=== PATIENT | male | born 2000 | race Hispanic/Latino ===

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

== ENCOUNTER 2021-02-16 03:32 | Emergency (ER) | payer OTHER ==
[~2021-02-16] VITALS: Ht 180.3 cm; Wt 80.3 kg
[~2021-02-16 03:32] MED LIST changes: +DOXY100T27 PO
[2021-02-16 03:33] VITALS: BP 133/76
--- OUTSIDE RECORDS SUMMARY | 2021-02-16 03:41 | CCD ---
Author Author [facility] Organization [facility] Address Unknown Phone Unavailable Care Team Providers Care Waiter/Waitress Cabin Class Name Role Phone [facility] Unavailable Unavailable CHANLIECCO, Shaila LYMAN MD Unavailable Unavailable CHANLIECCO, Shaila LYMAN MD Unavailable Unavailable CHANLIECCO, Shaila LYMAN MD Unavailable Unavailable CHANLIECCO, C BERENICE RODNEY Unavailable Unavailable CHANLIECCO, C BERENICE RODNEY Unavailable Unavailable CHANLIECCO, C BERENICE RODNEY Unavailable Unavailable CHANLIECCO, C BERENICE RODNEY Unavailable Unavailable CHANLIECCO, C BERENICE RODNEY Unavailable Unavailable CHANLIECCO, C BERENICE RODNEY Unavailable Unavailable CHANLIECCO, C BERENICE RODNEY Unavailable Unavailable CHANLIECCO, C BERENICE RODNEY Unavailable Unavailable Re-disclosure Warning The records that you are about to access may contain information from federally-assisted alcohol or drug abuse programs. If such information is present, then the following federally mandated warning applies: This information has been disclosed to you from records protected by federal confidentiality rules (42 CFR part 2). The federal rules prohibit you from making any further disclosure of this information unless further disclosure is expressly permitted by the written consent of the person to whom it pertains or as otherwise permitted by 42 CFR part 2. A general authorization for the release of medical or other information is NOT sufficient for this purpose. The Federal rules restrict any use of the information to criminally investigate or prosecute any alcohol or drug abuse patient.The records that you are about to access may contain highly sensitive health information, the redisclosure of which is protected by Article 27-F of the [facility] Public Health law. If you continue you may have access to information: Regarding HIV / AIDS; Provided by facilities licensed or operated by the [facility] Office of Mental Health; or Provided by the [facility] Office for People With Developmental Disabilities. If such information is present, then the following [facility] mandated warning applies: This information has been disclosed to you from confidential records which are protected by state law. State law prohibits you from making any further disclosure of this information without the specific written consent of the person to whom it pertains, or as otherwise permitted by law. Any unauthorized further disclosure in violation of state law may result in a fine or long term sentence or both. A general authorization for the release of medical or other information is NOT sufficient authorization for further disc losure. Encounters Encounter Providers Location Date Indications Data Source(s ) Emergency Attender: BERENICE CHOWDARY MDConsultant: CLIN [facility] 05/23/2020 07:33:00 AM EDT - 05/23/2020 09:07:00 AM EDT [facility] Patient discharged. Immunizations Vaccine Date Status Description Data Source(s) COVID-19 VACCINE Moderna 09/11/2020 12:00:00 AM EDT completed UiTVSIIS Vaccine Series Complete: YESThis Data wa s Submitted to [facility] Via APJeT. COVID-19 VACCINE Moderna 08/14/2020 12:00:00 AM EDT completed NYSIIS Vaccine Series Complete: NOThis Data was Submitted to [facility] Via APJeT. Medications No Information Insurance Providers Payer name Policy type / Coverage type Policy ID Covered alliance party ID Covered alliance party's relationship to burgos Policy [place] Plan Information [facility] [employer]UTY [id number] SP [id number] [facility] HUMANA - O/P [id number] 18 [id number] Problems, Conditions, and Diagnoses Code Display Name Description Problem Type Effective Dates Data Source(s) [id number] Left testicular pain Left testicular pain Diagnosis 05/23/2020 07:33:00 AM EDT [facility] Surgeries/Procedures No Information Results ID Date Data Source [id number] 05/23/2020 07:33:00 AM EDT [facility] 1 OrderSheet [facility] Emergency Department [address] [place] [address] Phone #: ext- [phone] 05/23/2020 07:16 [id number] Sex: M : 2000 Age: 19yWEIGHT:81.6 kg (S) HEIGHT:71 inches (S) BMI:25.1ALLERGIES: NoneCHIEF COMPLAINT: testicular pain:, LtLAB ORDERSOrder Description Priority Entered Acknowledged InitialedCBC w Diff STAT 07:28 05/23/2020 07:49 Berenice Ga RN ;CMP STAT 07:28 05/23/2020 07:49 Berenice Ga RN ;Urinalysis (Clean STAT 07:05/23/2020 07:58 Estrella Wiggins) Berenice Chowdary R.N. ;DIAGNOSTIC STUDY ORDERSOrder Description Priority Entered Acknowledged InitialedUS Scrotal STAT 07:05/23/2020 07:49 Leisa(Oxygen?(No)) Berenice Chowdary RN ; Reason for Study: Testicle/Scrotum PainMEDICATION/IV/DRIP/FLUID ORDERSOrder Description Priority Entered Acknowledged InitialedGENERAL ORDERSOrder Description Priority Entered Acknowledged Initialed[Electronically signed by Leisa Garcia RN (09:30 05/23/2020)][Electronically signed by Berenice Chowdary (19:20 05/23/2020)][Electronically locked by Leisa Garcia RN (09:05/23/2020)] Name Value Range Interpretation Code Description Data Kady rce(s) Supporting Document(s) ID Date Data Source [id number] 05/23/2020 07:33:00 AM EDT [facility] 1 Medication Reconciliation Report [facility] Emergency Department [address] [place] [address] Phone #: ext- [phone] 05/23/2020 07:16 Patient: CASTRO PATRICIO Sex: M : 2000 Age: 19yWeight: 81.6 kgHeight/Length: 71 in.BMI: 25.1ALLERGIES: NoneThe patient's Home Medications are listed below:NONE.The source(s) of the original Home Medication information:Not obtained.The following Medications were given to the patient in the Emergency Department:None.The following Medications were prescribed to the patient:None. Name Value Range Interpretation Code Description Data [facility](s) Supporting Document(s) ID Date Data Source [id number] 05/23/2020 07:33:00 AM EDT [facility] 1 Medication Administration Record [facility] Emergency Department [address] [place] [address] Phone #: ext- [phone] 05/23/2020 07:16 Patient: CASTRO PATRICIO Sex: M : 2000 Age: 19yWeight: 81.6 kgHeight/Length: 71 inBMI: 25.1ALLERGIES: NoneDate/Time Medication Administered Medication Ordered Name Value Range Interpretation Code Description Data Kady [facility](s) Supporting Document(s) ID Date Data Source [id number] 05/23/2020 07:33:00 AM EDT [facility] 1 General Instructions [facility] Emergency Department [address] [place] [address] Phone #: ext- [phone] 05/23/2020 07:16 Patient: CASTRO PATRICIO Sex: M : 2000 Age: 19y(left testicular pain).INSTRUCTIONSDo not work today, tomorrow.(the blood work as well as the urinalysis and testicular ultrasound were normal. there were no masses orhernia noted. there is also no blood in your urine to suggest referred pain from a kidney stone. use ajock support and follow up with your doctor in am. take tylenol or motirn for pain).Follow-up:Follow up with your healthcare provider today. Reason for referral: evaluation. Summary of care providedto patient via paper. Screening today revealed the patient's blood pressure to be in the hypertensive stage2 range. The patient should follow up with a primary care provider for blood pressure management.Do not work today, tomorrow.(Electronically signed by Berenice Chowdary 05/23/2020 19:20) Name Value Range Interpretation Code Description Data Kady rce(s) Supporting Document(s) ID Date Data Source [id number] 05/23/2020 07:33:00 AM EDT [facility] 1 Clinical Report - Nurses [facility] Emergency Department [address] [place] [address] Phone #: ext- [phone] 05/23/2020 07:16 Patient: CASTRO PATRICIO Sex: M : 2000 Age: 19yTRIAGEArrived by private vehicle. Historian: patient. Accompanied by friend. ( left testicular pain).Acuity: LEVEL 4.Chief Complaint: (left testicular pain).Alert.Onset. (3 or 4 days ago). The patient has had testicular pain.Treatment CHRISTMAS BELL RINGER:None.SEPSIS SCREEN: SIRS SCREEN NEGATIVE. SEPSIS SCREEN NEGATIVE. No suspected or confirmedsigns of infection present. --07:26 05/23/20 Georgia Wiggins R.N.07:22 05/23/20. BP: 145/82. MAP: 103. HR: 73. RR: 18. O2 saturation: 100%. Temp: 98.1 F. Pain levelnow: 4/10. --07:26 05/23/20 Georgia Wiggins R.N.Weight: 81.6 kg stated. Height/Length: 71 inches Per Patient. BMI: 25.1. --07:21 05/23/20 Georgia Wiggins R.N.MedicationsNone. --07:23 05/23/20 Georgia Wiggins R.N.AllergiesNone. --07:23 05/23/20 Georgia Wiggins R.N.PROBLEMS:no known problems.ADDITIONAL SURGERIES:no known surgeries.HistoryPAST MEDICAL HX: Immunizations: up-to-date.SOCIAL HX: Never smoker. No alcohol use or drug use. The patient was offered HIV testing butdeclined and hepatitis C testing but declined. The patient has not traveled outside the [place]Infectious disease exposure: No infectious disease exposure. Patient is not a known carrier of tuberculosis,hepatitis, HIV, MRSA or VRE. Patient is not a known carrier of CRE.SELF HARM ASSESSMENT: Self harm assessment was performed. The patient answered "no" to the 2 Clinical Report - Nurses [facility] Emergency Department [address] [place] [address] Phone #: ext- [phone] 05/23/2020 07:16 Patient: CASTRO PATRICIO Sex: Fariba : 2000 Age: 19y question(s) "Have you recently felt down, depressed, or hopeless?", "Do you have thoughts of harming or killing yourself?", "Do you have a plan for harming or killing yourself?", "Have you recently had thoughts about harming or killing others?", "Do you have any dangerous items in your possession?", "Have you noticed less interest or pleasure in doing things?", "Are you here because you tried to hurt yourself?" and "Have you ever tried to hurt yourself before today?". ABUSE ASSESSMENT: Abuse assessment. Abuse denied. No suspicion of abuse. No report of abuse. NUTRITIONAL RISK ASSESSMENT: The nutritional risk assessment revealed no deficiencies. FUNCTIONAL ASSESSMENT: Functional assessment: no impairments noted. LEARNING NEEDS ASSESSMENT: The learning needs assessment revealed no barriers. FALL RISK ASSESSMENT: Fall risk assessment completed. No risk factors identified. SKIN INTEGRITY ASSESSMENT: Skin integrity risk assessment completed. No skin integrity risk identified. --:05/23/20 Georgia Wiggins R.N. Interventions Identification band on patient. To treatment room. --:05/23/20 Georgia Wiggins R.N.PHYSICAL ASSESSMENTGENERAL / NEURO / PSYCH: Alert. Oriented X 4.HEENT: Mucous membranes are pink.RESPIRATORY: Respirations not labored. Breath sounds within normal limits.CVS: Normal heart rate and rhythm. Capillary refill less than 2 seconds.GI / : Abdomen soft and nontender. Bowel sounds within normal limits. No pain with urination,frequency of urination, urgency of urination or scrotal swelling. ( left testicular pain).SKIN: Skin is warm and dry. --:05/23/20 Georgia Wiggins R.N.NURSING PROGRESS NOTESPatient gowned. Reassurance given. Two patient identifiers checked. Call light placed in reach. Siderails up x 2. Bed placed in lowest position. Brakes of bed on. Patient ready for evaluation. ( unable tovoid at present for sample pt aware to let nurse know when he can void). --05/23/20 Georgia Wiggins R.N. Patient ID band checked for patient name and birthdate: patient confirmed. Instructions provided to collect clean catch urine and patient verbalized understanding. Clean catch urine collected; sample sent to lab for urinalysis. Specimen labeled in the presence of the patient. Patient transported to sonogram by wheelchair with tech. --07:59 05/23/20 Georgia Wiggins R.N. 08:10 05/23/20. Patient returned from sonogram by wheelchair with tech. --08:15 05/23/20 Georgia Wiggins R.N. 3 Clinical Report - Nurses [facility] Emergency Department [address] [place] [address] Phone #: ext- [phone] 05/23/2020 07:16 Patient: CASTRO PATRICIO Sex: M : 2000 Age: 19yDISPOSITION / DISCHARGE 09:01 05/23/20. BP: 139/73. HR: 75. RR: 18. O2 saturation: 98%. Temp: 97.4 F. Pain level now 05/15. --09:01 05/23/20 Replaced by [facility], [place] [id number] 09:07 05/23/20. Condition at departure: improved and stable. No learning barriers present. Discharge instructions provided and reviewed with the patient. Patient verbalized understanding. The patient was discharged home. He left ambulatory and via private vehicle. Patient driving. - -09:15 05/23/20 Leisa Garcia RN.Locked/Released at 05/23/2020 09:30 by Leisa Garcia RN Name Value Range Interpretation Code Description Data Kady rce(s) Supporting Document(s) ID Date Data Source [id number] 05/23/2020 07:33:00 AM EDT [facility] 1 Clinical Report - Physicians/Mid Levels [facility] Emergency Department [address] [place] [address] Phone #: ext [phone] 05/23/2020 07:16 Patient: CASTRO PATRICIO Sex: M : 2000 Age: 19y Time Seen: 07:25 05/23/2020; initial patient contact, initial documentation. Arrived- By private vehicle. Disposition decision: 08:58 05/23/2020.HISTORY OF PRESENT ILLNESS Chief Complaint: LEFT TESTICULAR PAIN. This started 4 days ago and is still present (worse last night but better this morning). The problem is described as moderate. It was gradual in onset and has been intermittent (4 hours hours days). No penile discharge, discomfort with urination, urinary frequency, genital lesion or flank pain. No Hayes catheter problem, inguinal swelling or problem with the foreskin. He has had testicular pain. Able to void. Not voiding only small amounts. The patient has had no unprotected intercourse or not had an exposure to a sexually transmitted disease. Sexual history is noncontributory.REVIEW OF SYSTEMSNo fever, chills, flank pain, hematuria or abdominal pain. No vomiting, diarrhea, black stools, headache orsore throat. No blurred vision, chest pain, difficulty breathing, cough or joint pain. No skin rash or backpain. All other systems reviewed and are negative.PAST HISTORYNegative. Problems: no known problems. Additional Surgeries: no known surgeries. Medications: None. Allergies: None.SOCIAL HISTORYNever smoker. No alcohol use or drug use.ADDITIONAL NOTESThe nursing notes have been reviewed.PHYSICAL EXAMVital Signs: 05/23/2020 07:22 BP: 145/82. MAP: 103. HR: 73. RR: 18. O2 saturation: 100%. Temp: 98.1F. Pain level now: 410. Have been reviewed. Oxygen saturation normal.Appearance: Alert. Oriented X3. No acute distress. 2 Clinical Report - Physicians/Mid Levels [facility] Emergency Department [address] [place] [address] Phone #: ext- [phone] 05/23/2020 07:16 Patient: CASTRO PATRICIO Sex: M : 2000 Age: 19y ENT: Normal external inspection. Pharynx normal. Neck: Neck supple. CVS: Heart sounds normal. Respiratory: No respiratory distress. Painless inspiration. Breath sounds normal. Abdomen: Soft and nontender. No organomegaly. No mass. Femoral pulses equal. : Normal genitalia. Scrotal swelling with tenderness (there is mild tenderness on palpation on the left testicle). No urethral discharge, genital lesion, phimosis, herpes-like lesions or scrotal mass. No inguinal lymphadenopathy or Hayes catheter. Skin: Skin warm and dry. Normal skin color. No rash. Normal skin turgor. Extremities: Extremities exhibit normal ROM. No lower extremity edema. Neuro: Oriented X 3. No motor deficit. No sensory deficit. Reflexes normal.LABS, X-RAYS, AND EKGScrotal Sonogram: Dakota martinez Michael - 05/23/2020 8:21:02 AM No acute disease no signs of torsion or any testicular lesions. Epididymi appear normal. The study was interpreted by the radiologist. Laboratory Tests: CBC w Diff: (AUTUMN: 05/23/2020 07:40) ( MsgRcvd 05/23/2020 08:03) Final results Test Result Flag Units (Reference) CBC W/AUTOMATED DIFF COMPLETE BLOOD COUNT WBC 5.6 10/uL (4.2 - 11.0) RBC 5.62 10/uL (4.50 - 6.30) HEMOGLOBIN 15.8 g/dL (14.0 - 16.0) HEMATOCRIT 46.5 % (41.0 - 51.0) MCV 82.7 fL (80.0 - 94.0) MCH 28.1 pg (27.0 - 34.0) MCHC 34.0 g/dL (31.0 - 36.0) RDW 13.1 % (11.5 - 14.8) PLATELETS 213 10/uL (150 - 450) MPV 9.5 fL (7.4 - 10.4) NEUT 46.6 % (37.0 - 80.0) LYMPH 34.8 % (25.0 - 40.0) MONO 15.3 H % (3.0 - 8.0) EOS 2.7 % (0.0 - 7.0) BASO 0.4 % (0.0 - 2.0) %IG 0.2 H % (0.0 - 0.0) %NRBC 0.0 % (0.0 - 0.0) #NEUT 2.60 10/uL (2.00 - 6.90) #LYMPH 1.94 10/uL (0.60 - 3.40) #MONO 0.85 10/uL (0.00 - 0.90) #EOS 0.15 10/uL (0.00 - 0.70) #BASO 0.02 10/uL (0.00 - 0.20) #IG 0.01 10/uL (0.00 - 0.10) #NRBC 0.00 10/uL (0.00 - 0.00) MANUAL DIFF NOT INDICATED RBC MORPH NOT INDICATED CMP: (AUTUMN: 05/23/2020 07:40) ( MsgRcvd 05/23/2020 08:21) Final results Test Result Flag Units (Reference) COMPREHENSIVE METABOLIC PANEL 3 Clinical Report - Physicians/Mid Levels [facility] Emergency Department [address] [place] [address] Phone #: ext- [phone] 05/23/2020 07:16 Patient: CASTRO PATRICIO Sex: M : 2000 Age: 19y COMPREHENSIVE METABOLIC PANEL SODIUM 138 mEq/L (134 - 153) POTASSIUM 4.0 mEq/L (3.6 - 5.0) CHLORIDE 101 mEq/L (98 - 107) CO2 27 MEQ/L (22 - 30) GLUCOSE 104 H MG/DL (70 - 99) BUN 15 MG/DL (7 - 21) CREATININE 0.8 MG/DL (0.7 - 1.5) BUN/CREAT 19 (8 - 27) TOTAL PROTEIN 7.2 G/DL (6.3 - 8.2) ALBUMIN 4.4 G/DL (3.9 - 5.0) GLOBULIN 2.8 GM/DL (2.4 - 3.2) A/G RATIO 1.6 (0.8 - 2.0) CALCIUM 9.7 MG/DL (8.4 - 10.2) TOTAL BILI <0.7 MG/DL (0.2 - 1.3) ALKALINE PHOS 205 H U/L (38 - 126) SGOT/AST 28 U/L (5 - 40) SGPT/ALT 37 U/L (7 - 56) ANION GAP 10.0 mmol/L (8.0 - 16.0) AGE 19 yrs NON-AA GFR >60 mL/min AFR AMER GFR >60 mL/min Male GFR Interprentation 20-49 yrs >60 mL/min Normal 50-59 yrs >56 mL/min Normal 60-69 yrs >49 mL/min Normal 70-79yrs >42 mL/min Normal 80 and above >35 mL/min Normal Female GFR Interpretation 20-39 yrs >60 mL/min Normal 40-49 yrs >58 mL/min Normal 50-59 yrs >51 mL/min Normal 60-69 yrs >45 mL/min Normal 70-79 yrs >39 mL/min Normal 80 and above >32 mL/min Normal Urinalysis: (AUTUMN: 05/23/2020 07:40) ( MsgRcvd 05/23/2020 08:20) Final results Test Result Flag Units (Reference) URINALYSIS URINALYSIS SOURCE R COLOR yellow (NORMAL: Yello CLARITY clear (NORMAL: Clear SPEC GRAVITY 1.020 (1.001 - 1.030 pH 6 (5 - 9) GLUCOSE NORM (NORMAL: Negat BILIRUBIN NEG (NORMAL: Negat KETONE NEG (NORMAL: Negat PROTEIN NEG (NORMAL: Negat NITRITE NEG (NORMAL: Negat BLOOD NEG (NORMAL: Negat LEUK EST NEG (NORMAL: Negat UROBILINOGEN NOR (less than 1.0 MICROSCOPIC Not Indicate US Scrotal: (AUTUMN: 05/23/2020 07:33) ( MsgRcvd 05/23/2020 08:15) In Progress US SCROTAL Reason(s): Testicle/Scrotum Pain TRANSPORTATION: IV? O2? Oxygen?(No) Room: ED. 4 Clinical Report - Physicians/Mid Levels [facility] Emergency Department [address] [place] [address] Phone #: ext- [phone] 05/23/2020 07:16 Patient: CASTRO PATRICIO Sex: M : 2000 Age: 19yPROGRESS AND PROCEDURESCourse of Care: 08:52 05/23/20. urinalysis as well as blood work were unremarkable. US of the testiclewas negative. there was no swelling or mass noted on physical exam as well. Patient counseled in person regarding the patient's stable condition, test results, normal exam, normal evaluation and need for follow-up. Patient agrees with plan of care. Disposition: Discharged home in stable condition (08:59). Condition: good and stable. Discharge decision based on the following: patient's condition is stable; patient's exam is stable; no abnormal test results; stable condition on repeat evaluation; social support is adequate; transportation is available; follow-up is available; clinical impression is consistent with outpatient treatment.CLINICAL IMPRESSION (left testicular pain).INSTRUCTIONS Do not work today, tomorrow. (the blood work as well as the urinalysis and testicular ultrasound were normal. there were no masses or hernia noted. there is also no blood in your urine to suggest referred pain from a kidney stone. use a jock support and follow up with your doctor in am. take tylenol or motirn for pain). Follow-up: Follow up with your healthcare provider today. Reason for referral: evaluation. Summary of care provided to patient via paper. Screening today revealed the patient's blood pressure to be in the hypertensive stage 2 range. The patient should follow up with a primary care provider for blood pressure management.(Electronically signed by Berenice Chowdary 05/23/2020 19:20) Name Value Range Interpretation Code Description Data Kady rce(s) Supporting Document(s) ID Date Data Source [id number] 05/23/2020 10:24:00 AM EDT [facility] [address] [place] [address] PHONE: [phone] FAX: [phone] Name .................. : SINTIA Link Acct Number.................. : [id number] ROOM. ................. : -04 MR Number ................... : [id number] Stay type ............. : E/R Discharge Date......... ... : Admit Date ......... : 05/23/20 Admit Phys .................... : [facility] Date of ....... : 2000 Family Phys ................... : UNKNOWN Phone .................. : [phone] Age ................................ : 19 Film# .................. .:[id number] Sex ................................. : M Unsigned transcriptions are preliminary reports and do not represent a medical or legal document SCROTAL [id number] COMPLETE:05/23/20 08:15 [facility] [id number] Reason(s): Jessenia ticle/Scrotum Pain BILATERAL TESTICULAR ULTRASOUND WITH DUPLEX AND COLOR FLOW DOPPLER ANALYSIS, 05/23/20: FINDINGS: Right testicle measures 4.2 x 2.0 x 3.0 cm. Left testicle measures 4.0 x 1.8 x 2.5 cm. There are no signs of any intratesticular lesions identified. There are no signs of any definite abnormalities to flow to either testicle. No signs of any hydroceles. No evidence for any epididymitis identified. IMPRESSION: Unremarkable bilateral scrotal ultrasound with Duplex and color flow Doppler analysis. Electronically Reviewed and Signed By LENI COBURN MD , 05/23/20 10:24, M Transcribe Initials: SSR, Transcribe Date: 05/23/20 09:06, Dictation Date: Copy for: EMERGENCY DEPT via modem Copy for: 710 MED REC DISCHARGED Page 1 of 1 Name Value Range Interpretation Code Description Data Kady rce(s) Supporting Document(s) ID Date Data Source [id number] 05/23/2020 08:21:00 AM EDT [facility] Name Value Range Interpretation Code Description Data Kady rce(s) Supporting Document(s) COMPREHENSIVE METABOLIC PANEL [facility] COMPREHENSIVE METABOLIC PANEL Sodium [Moles/volume] in Serum or Plasma 138 mEq/L 134 - 153 [facility] Potassium [Moles/volume] in Serum or Plasma 4.0 mEq/L 3.6 - 5.0 [facility] Chloride [Moles/volume] in Serum or Plasma 101 mEq/L 98 - 107 [facility] Carbon dioxide, total [Moles/volume] in Serum or Plasma 27 MEQ/L 22 - 30 [facility] Glucose [Mass/volume] in Serum or Plasma 104 MG/DL 70 - 99 H [facility] BUN 15 MG/DL 7 - 21 [facility] al Creatinine [Mass/volume] in Serum or Plasma 0.8 MG/DL 0.7 - 1.5 [facility] BUN/CREAT 19 8 - 27 [facility] Protein [Mass/volume] in Serum or Plasma 7.2 G/DL 6.3 - 8.2 [facility] Albumin [Mass/volume] in Serum or Plasma 4.4 G/DL 3.9 - 5.0 [facility] Globulin [Mass/volume] in Serum by calculation 2.8 GM/DL 2.4 - 3.2 [facility] A/G RATIO 1.6 0.8 - 2.0 [facility] Calcium [Mass/volume] in Serum or Plasma 9.7 MG/DL 8.4 - 10.2 [facility] Bilirubin.total [Mass/volume] in Serum or Plasma <0.7 MG/DL 0.2 - 1.3 [facility] Alkaline phosphatase [Enzymatic activity/volume] in Serum or Plasma 205 U/L 38 - 126 H [facility] Aspartate aminotransferase [Enzymatic activity/volume] in Serum or Plasma 28 U/L 5 - 40 [facility] Alanine aminotransferase [Enzymatic activity/volume] in Seru m or Plasma 37 U/L 7 - 56 [facility] Anion gap 3 in Serum or Plasma 10.0 mmol/L 8.0 - 16.0 [facility] 19 [facility] >60 [facility]/min [facility] AFR AMER GFR >60 mL/min [facility] Ho spital Male GFR In terprentation 20-49 yrs >60 mL/min Normal 50-59 yrs >56 mL/min Normal 60-69 yrs >49 mL/min Normal 70-79yrs >42 mL/min Normal 80 and above >35 mL/min Normal Female GFR Interpretation 20-39 yrs >60 mL/min Normal 40-49 yrs >58 mL/min Normal 50-59 yrs >51 mL/min Normal 60-69 yrs >45 mL/min Normal 70-79 yrs >39 mL/min Normal 80 and above >32 mL/min Normal ID Date Data Source [id number] 05/23/2020 08:16:00 AM EDT [facility] Name Value Range Interpretation Code Description Data Kady rce(s) Supporting Document(s) URINALYSIS [facility] URINALYSIS SOURCE R [facility] COLOR yellow NORMAL: Yellow [facility] CLARITY clear NORMAL: Clear [facility] Specific gravity of Urine by Test strip 1.020 1.001 - 1.030 [facility] pH 6 5 - 9 [facility] al Glucose [Mass/volume] in Urine by Test strip NORM NORMAL: Negat [facility] Bilirubin.total [Presence] in Urine by Test strip NEG NORMAL: Negative [facility] Ketones [Presence] in Urine by Test strip NEG NORMAL: Negative [facility] Protein [Mass/volume] in Urine by Test strip NEG NORMAL: Negat [facility] Nitrite [Presence] in Urine by Test strip NEG NORMAL: Negative [facility] BLOOD NEG NORMAL: Negative [facility] Leukocyte esterase [Presence] in Urine by Test strip NEG HAROON L: Negative [facility] Urobilinogen [Mass/volume] in Urine by Test strip NOR less latasha n 1.0 mg/dL [facility] MICROSCOPIC Not Indicate [facility] ospital ID Date Data Source [id number] 05/23/2020 08:01:00 AM EDT [facility] Name Value Range Interpretation Code Description Data Kady rce(s) Supporting Document(s) CBC W/AUTOMATED DIFF [facility] COMPLETE BLOOD COUNT Leukocytes [#/volume] in Blood by Automated count 5.6 10^3/uL 4.2 - 1 1.0 [facility] Erythrocytes [#/volume] in Blood by Automated count 5.62 10^6/uL 4. 50 - 6.30 [facility] Hemoglobin [Mass/volume] in Blood 15.8 g/dL 14.0 - 16.0 [facility] Hematocrit [Volume Fraction] of Blood by Automated count 46.5 % 4 1.0 - 51.0 [facility] Erythrocyte mean corpuscular volume [Entitic volume] by Auto mated count 82.7 fL 80.0 - 94.0 [facility] Erythrocyte mean corpuscular hemoglobin [Entitic mass] by Automated count 28.1 pg 27.0 - 34.0 [facility] Erythrocyte mean corpuscular hemoglobin concentration [Mass/volume] by Automated count 34.0 g/dL 31.0 - 36.0 [facility] Erythrocyte distribution width [Ratio] by Automated count 13.1 % 11.5 - 14.8 [facility] Platelets [#/volume] in Blood by Automated count 213 10^3/uL 150 - 45 0 [facility] Platelet mean volume [Entitic volume] in Blood by Automated count 9.5 fL 7.4 - 10.4 [facility] Neutrophils/100 leukocytes in Blood by Automated count 46.6 % 37. 0 - 80.0 [facility] Lymphocytes/100 leukocytes in Blood by Manual count 34.8 % 25.0 - 40.0 [facility] Monocytes/100 leukocytes in Blood by Automated count 15.3 % 3.0 - 8.0 H [facility] Eosinophils/100 leukocytes in Blood by Automated count 2.7 % 0.0 - 7.0 [facility] Basophils/100 leukocytes in Blood by Automated count 0.4 % 0.0 - 2.0 [facility] %IG 0.2 % 0.0 - 0.0 [facility] 0.0 % 0.0 - 0.0 [facility] al Neutrophils [#/volume] in Blood by Automated count 2.60 10^3/uL 2.00 - 6.90 [facility] Lymphocytes [#/volume] in Blood by Automated count 1.94 10^3/uL 0.60 - 3.40 [facility] Monocytes [#/volume] in Blood by Automated count 0.85 10^3/uL 0.00 - 0.90 [facility] Eosinophils [#/volume] in Blood by Automated count 0.15 10^3/uL 0.00 - 0.70 [facility] Basophils [#/volume] in Blood by Automated count 0.02 10^3/uL 0.00 - 0.20 [facility] #IG 0.01 10^3/uL 0.00 - 0.10 [facility] #NRBC 0.00 10^3/uL 0.00 - 0.00 [facility] MANUAL DIFF NOT INDICATED [facility] RBC MORPH NOT INDICATED [facility] spital Procedure Social History No Information
--- OUTSIDE RECORDS SUMMARY | 2021-02-16 07:01 | CCD ---
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 Public Health law. If you continue you may have access to information: Regarding HIV / AIDS; Provided by facilities licensed or operated by the [facility] Office of Mental Health; or Provided by the [facility] Office for People With Developmental Disabilities. If such information is present, then the following [facility] mandated warning applies: This information has [...] law may result in a fine or shelter sentence or both. A general authorization for the release of medical or other information is NOT sufficient authorization for further disc losure. Encounters Encounter Providers Location Date Indications Data Source(s ) Emergency Attender: BERENICE CHOWDARY MDConsultant: [facility] 05/23/2020 07:33:00 AM EDT - 05/23/2020 09:07:00 AM EDT [facility] Patient discharged. Immunizations Vaccine Date Status Description Data Source(s) COVID-19 VACCINE Moderna 09/11/2020 12:00:00 AM EDT completed Hive7SIIS Vaccine Series Complete: YESThis Data wa s Submitted to [facility] Via [employer]. COVID-19 VACCINE Moderna 08/14/2020 12:00:00 AM EDT completed NYSIIS Vaccine Series Complete: NOThis Data was Submitted to [facility] Via [employer]. Medications No Information Insurance Providers Payer name Policy type / Coverage type Policy ID Covered republican ID Covered republican's relationship to burgos Policy [place] Plan Information [facility] ACTIVE DUTY [id number] SP [id number] [facility] HUMANA - O/P [id number] 18 [id number] Problems, Conditions, and Diagnoses Code Display Name Description Problem Type Effective Dates Data Source(s) [id number] Left testicular pain Left testicular pain Diagnosis 05/23/2020 07:33:00 AM EDT [facility] Surgeries/Procedures No Information Results ID Date Data Source [id number] 05/23/2020 07:33:00 AM EDT [facility] 1 OrderSheet [facility] Emergency Department [address] [place] [address] Phone #: ext- [phone] 05/23/2020 07:16 [id number] Sex: [facility] : 2000 Age: 19yWEIGHT:81.6 kg [...] rce(s) Supporting Document(s) ID Date Data Source [id number] 05/23/2020 07:33:00 AM EDT [facility] 1 Medication Reconciliation Report [facility] Emergency Department [address] [place] [address] Phone #: ext- [phone] 05/23/2020 07:16 Patient: CASTRO PATRICIO Sex: M : 2000 Age: 19yWeight: 81.6 kgHeight/Length: 71 in.BMI: 25.1ALLERGIES: NoneThe patient's Home Medications are listed below:NONE.The source(s) of the original Home Medication information:Not obtained.The following Medications were given to the patient in the Emergency Department:None.The following Medications were prescribed to the patient:None. Name Value Range Interpretation Code Description Data [facility](s) Supporting Document(s) ID Date Data Source [id number] 05/23/2020 07:33:00 AM EDT [facility] 1 Medication Administration Record [facility] Emergency Department [address] [place] [address] Phone #: ext- [phone] 05/23/2020 07:16 Patient: CASTRO PATRICIO Sex: M : 2000 Age: 19yWeight: 81.6 kgHeight/Length: 71 inBMI: 25.1ALLERGIES: NoneDate/Time Medication Administered Medication Ordered Name Value Range Interpretation Code Description Data [facility](s) Supporting Document(s) ID Date Data Source [id number] 05/23/2020 07:33:00 AM EDT [facility] 1 General Instructions [facility] Emergency Department [address] [place] [address] Phone #: ext- [phone] 05/23/2020 07:16 Patient: [...] rce(s) Supporting Document(s) ID Date Data Source [id number] 05/23/2020 07:33:00 AM EDT [facility] 1 Clinical Report - Nurses [facility] Emergency Department [address] [place] [address] Phone #: ext- [phone] 05/23/2020 07:16 Patient: CASTRO PATRICIO Sex: M : 2000 Age: 19yTRIAGEArrived by private vehicle. Historian: patient. Accompanied by friend. ( left testicular pain).Acuity: LEVEL 4.Chief Complaint: (left testicular pain).Alert.Onset. (3 or 4 days ago). The patient has had testicular pain.Treatment LAY OUT CARPENTER:None.SEPSIS SCREEN: SIRS SCREEN NEGATIVE. SEPSIS SCREEN NEGATIVE. [...] to the 2 Clinical Report - Nurses [facility] Emergency Department [address] [place] [address] Phone #: ext- [phone] 05/23/2020 07:16 Patient: [...] Wiggins R.N. 3 Clinical Report - Nurses [facility] Emergency Department [address] [place] [address] Phone #: ext- [phone] 05/23/2020 07:16 Patient: CASTRO PATRICIO Sex: M : 2000 Age: 19yDISPOSITION / DISCHARGE 09:01 05/23/20. BP: 139/73. HR: 75. RR: 18. O2 saturation: 98%. Temp: 97.4 F. Pain level now 05/15. --09:01 05/23/20 [facility], [place] [id number] 09:07 05/23/20. Condition at departure: improved and [...] rce(s) Supporting Document(s) ID Date Data Source [id number] 05/23/2020 07:33:00 AM EDT [facility] 1 Clinical Report - Physicians/Mid Levels [facility] Emergency Department [address] [place] [address] Phone #: ext [phone] 05/23/2020 07:16 Patient: CASTRO PATRICIO Sex: M [...] distress. 2 Clinical Report - Physicians/Mid Levels [facility] Emergency Department [address] [place] [address] Phone #: ext- [phone] 05/23/2020 07:16 Patient: [...] PANEL 3 Clinical Report - Physicians/Mid Levels [facility] Emergency Department [address] [place] [address] Phone #: ext- [phone] 05/23/2020 07:16 Patient: [...] ED. 4 Clinical Report - Physicians/Mid Levels [facility] Emergency Department [address] [place] [address] Phone #: ext- [phone] 05/23/2020 07:16 Patient: [...] rce(s) Supporting Document(s) ID Date Data Source [id number] 05/23/2020 10:24:00 AM EDT [facility] [address] [place] [address] PHONE: [phone] FAX: [phone] Name .................. : SINTIA Link Acct Number.................. : [id number] ROOM. ................. : -04 MR Number ................... : [id number] Stay type ............. : E/R Discharge Date......... ... : Admit Date ......... : 05/23/20 Admit Phys .................... : [facility] Date of ....... : 2000 Family Phys ................... : UNKNOWN Phone .................. : [phone] Age ................................ : 19 Film# .................. .:[id number] Sex ................................. : M Unsigned transcriptions are preliminary reports and do not represent a medical or legal document SCROTAL [id number] COMPLETE:05/23/20 08:15 [facility] [id number] Reason(s): Jessenia ticle/Scrotum Pain BILATERAL [...] rce(s) Supporting Document(s) ID Date Data Source [id number] 05/23/2020 08:21:00 AM EDT [facility] Name Value Range Interpretation Code Description Data Kady rce(s) Supporting Document(s) COMPREHENSIVE METABOLIC PANEL [facility] COMPREHENSIVE METABOLIC PANEL Sodium [Moles/volume] in Serum or Plasma 138 mEq/L 134 - 153 [facility] Potassium [Moles/volume] in Serum or Plasma 4.0 mEq/L 3.6 - 5.0 [facility] Chloride [Moles/volume] in Serum or Plasma 101 mEq/L 98 - 107 [facility] Carbon dioxide, total [Moles/volume] in Serum or Plasma 27 MEQ/L 22 - 30 [facility] Glucose [Mass/volume] in Serum or Plasma 104 MG/DL 70 - 99 H [facility] BUN 15 MG/DL 7 - 21 [facility] al Creatinine [Mass/volume] in Serum or Plasma 0.8 MG/DL 0.7 - 1.5 [facility] BUN/CREAT 19 8 - 27 [facility] Protein [Mass/volume] in Serum or Plasma 7.2 G/DL 6.3 - 8.2 [facility] Albumin [Mass/volume] in Serum or Plasma 4.4 G/DL 3.9 - 5.0 [facility] Globulin [Mass/volume] in Serum by calculation 2.8 GM/DL 2.4 - 3.2 [facility] A/G RATIO 1.6 0.8 - 2.0 [facility] Calcium [Mass/volume] in Serum or Plasma 9.7 MG/DL 8.4 - 10.2 [facility] Bilirubin.total [Mass/volume] in Serum or Plasma <0.7 MG/DL 0.2 - 1.3 [facility] Alkaline phosphatase [Enzymatic activity/volume] in Serum or Plasma 205 U/L 38 - 126 H [facility] Aspartate aminotransferase [Enzymatic activity/volume] in Serum or Plasma 28 U/L 5 - 40 [facility] Alanine aminotransferase [Enzymatic activity/volume] in Seru m or Plasma 37 U/L 7 - 56 [facility] Anion gap 3 in Serum or Plasma 10.0 mmol/L 8.0 - 16.0 [facility]GE 19 [facility]rs [facility] NON-AA GFR >60 mL/min [facility] ital AFR AMER GFR >60 mL/min [facility] spital Male GFR In terprentation 20-49 [...] >32 mL/min Normal ID Date Data Source [id number] 05/23/2020 08:16:00 AM EDT [facility] Name Value Range Interpretation Code Description Data Kady rce(s) Supporting Document(s) URINALYSIS [facility] URINALYSIS SOURCE R [facility] COLOR yellow NORMAL: Yellow [facility] CLARITY clear NORMAL: Clear [facility] spital Specific gravity of Urine by Test strip 1.020 1.001 - 1.030 [facility] pH 6 5 - 9 [facility] al Glucose [Mass/volume] in Urine by Test strip NORM NORMAL: Negat [facility] Bilirubin.total [Presence] in Urine by Test strip NEG NORMAL: Negative [facility] Ketones [Presence] in Urine by Test strip NEG NORMAL: Negative [facility] Protein [Mass/volume] in Urine by Test strip NEG NORMAL: Negat [facility] Nitrite [Presence] in Urine by Test strip NEG NORMAL: Negative [facility] BLOOD NEG NORMAL: Negative [facility] Leukocyte esterase [Presence] in Urine by Test strip NEG HAROON L: Negative [facility] Urobilinogen [Mass/volume] in Urine by Test strip NOR less latasha n 1.0 mg/dL [facility] MICROSCOPIC Not Indicate [facility] ospital ID Date Data Source [id number] 05/23/2020 08:01:00 AM EDT [facility] Name Value Range Interpretation Code Description Data Kady rce(s) Supporting Document(s) CBC W/AUTOMATED DIFF [facility] COMPLETE BLOOD COUNT Leukocytes [#/volume] in Blood by Automated count 5.6 10^3/uL 4.2 - 1 1.0 [facility] Erythrocytes [#/volume] in Blood by Automated count 5.62 10^6/uL 4. 50 - 6.30 [facility] Hemoglobin [Mass/volume] in Blood 15.8 g/dL 14.0 - 16.0 [facility] Hematocrit [Volume Fraction] of Blood by Automated count 46.5 % 4 1.0 - 51.0 [facility] Erythrocyte mean corpuscular volume [Entitic volume] by Auto mated count 82.7 fL 80.0 - 94.0 [facility] Erythrocyte mean corpuscular hemoglobin [Entitic mass] by Automated count 28.1 pg 27.0 - 34.0 [facility] Erythrocyte mean corpuscular hemoglobin concentration [Mass/volume] by Automated count 34.0 g/dL 31.0 - 36.0 [facility] Erythrocyte distribution width [Ratio] by Automated count 13.1 % 11.5 - 14.8 [facility] Platelets [#/volume] in Blood by Automated count 213 10^3/uL 150 - 45 0 [facility] Platelet mean volume [Entitic volume] in Blood by Automated count 9.5 fL 7.4 - 10.4 [facility] Neutrophils/100 leukocytes in Blood by Automated count 46.6 % 37. 0 - 80.0 [facility] Lymphocytes/100 leukocytes in Blood by Manual count 34.8 % 25.0 - 40.0 [facility] Monocytes/100 leukocytes in Blood by Automated count 15.3 % 3.0 - 8.0 H [facility] Eosinophils/100 leukocytes in Blood by Automated count 2.7 % 0.0 - 7.0 [facility] Basophils/100 leukocytes in Blood by Automated count 0.4 % 0.0 - 2.0 [facility] %IG 0.2 % 0.0 - 0.0 [facility] %NRBC 0.0 % 0.0 - 0.0 [facility] al Neutrophils [#/volume] in Blood by Automated count 2.60 10^3/uL 2.00 - 6.90 [facility] Lymphocytes [#/volume] in Blood by Automated count 1.94 10^3/uL 0.60 - 3.40 [facility] Monocytes [#/volume] in Blood by Automated count 0.85 10^3/uL 0.00 - 0.90 [facility] Eosinophils [#/volume] in Blood by Automated count 0.15 10^3/uL 0.00 - 0.70 [facility] Basophils [#/volume] in Blood by Automated count 0.02 10^3/uL 0.00 - 0.20 [facility] #IG 0.01 10^3/uL 0.00 - 0.10 [facility] H [facility]spital #NRBC 0.00 10^3/uL 0.00 - 0.00 [facility] MANUAL DIFF NOT INDICATED [facility] RBC MORPH NOT INDICATED [facility] Ho spital Procedure Social History No Information
== END 2021-02-16 07:02 | disposition left against medical advice (07) ==
LOC: M ED 03:32
DX: Z53.29 Procedure and treatment not carried out because of patient's decision for other reasons (principal)